=== PATIENT | male | born 1975 | race African-American/Black ===

== ENCOUNTER 2022-05-26 15:18 | Observation (INO) | payer SELFPAY ==
[2022-05-26 15:59] LABS: Hemoglobin 13.2 g/dL (14.0-18.0); Mean Corpuscular HGB CONC 32.5 g/dL (32.0-36.0); Mean Corpuscular Hemoglobin 29.1 pg (27.0-31.0); Mean Corpuscular Volume 89.6 fl (78.0-98.0); Mean Platelet Volume 9.3 fL (7.4-10.4); Platelet Count 145 10x3/uL (130-400); RBC Distribution Width 12.5 % (11.5-14.5); Red Blood Cell (RBC) Count 4.54 mill/uL (4.70-6.10); White Blood Cell (WBC) Count 4.6 10x3/uL (4.8-10.8)
[2022-05-26 16:17] LABS: ALT (SGPT) 32 U/L (8-55); AST (SGOT) 48 U/L (5-34); Albumin 4.1 g/dL (3.5-5.0); Alkaline Phosphatase 69 U/L (40-110); Anion Gap 10 mmol/L (10-20); BUN (Urea Nitrogen) 12 mg/dL (8.9-20.6); Bilirubin, Total 0.5 mg/dL (0.2-1.2); Calc. Creatinine Clearance 0 mL/min (70-130); Calcium 9.2 mg/dL (7.8-10.44); Carbon Dioxide 25 mmol/L (22-29); Chloride 103 mmol/L (98-107); Estimated GFR 101; Glucose 93 mg/dL (70-105); Potassium 3.3 mmol/L (3.5-5.1); Protein, Total 7.1 g/dL (6.0-8.3); Sodium 135 mmol/L (136-145)
[2022-05-26 16:21] LABS: Band 1 % (5-11); Eosinophils 3 % (0-10); Lymphocytes 53 % (21-51); MDiff Complete? YES; Monocytes 9 % (0-10); Neutrophil 32 % (42-75); Platelet Morphology Comment Appears Adequate; RBC Morphology Normal; Reactive Lymphocytes 1 % (0-10)
[2022-05-26] MEDS ORDERED: Potassium Chloride 20 MEQ TAB ONE (16:56)
[2022-05-26 17:37] LABS: Actual Bicarbonate (HCO3a) 27.1 mEq/L (22-28); Analyzer IN Cardio ER; Base Excess (BEa) 2.1 mEq/L (-2.0 to +3.0); CO2 Tension 43.8 mmHg (35.0-45.0); Calcium, Ionized (arterial) 1.19 mmol/L (1.12-1.30); Hemoglobin (Hb) 14.3 g/dL (14.0-18.0); O2 Tension (PaO2), arterial 75.3 mmHg (80.0-100.0); Potassium - ABG Lab 3.33 mmol/L (3.70-5.30); pH, Arterial 7.41 (7.35-7.45)
[2022-05-26 17:38] LABS: Puncture Site RRA
[2022-05-26 17:58] LABS: Acetaminophen Less than 10.0 mcg/mL (10.0-30.0); Alcohol Less than 10 mg/dL (Less than 10); Magnesium 2.2 mg/dL (1.6-2.6); Salicylate Less than 8.0 mg/dL (15.0-30.0)
[2022-05-26 18:24] LABS: Bacteria/HPF None Seen HPF (None Seen); Bilirubin Negative (Negative); Blood, Urine Negative (Negative); Clarity Clear (Clear); Glucose, Urine (Dipstick) Normal (Negative); Ketone, Urine Negative (Negative); Leukocyte 75 Leu/uL (Negative); Nitrite Negative (Negative); Protein, Urine (Dipstick) Negative (Neg-Trace); RBC/HPF None Seen HPF (0-3); Squamous Epithelial 0-3 HPF (0-3); Urobilinogen Normal mg/dL (Less than 2); pH, Urine 6.5 (5.0-9.0)
[2022-05-26 18:29] LABS: Amphetamine Detected (NotDetected); Barbiturates Screen Not Detected (NotDetected); Benzodiazepine Screen Not Detected (NotDetected); Cocaine Metabolite Screen Not Detected (NotDetected); Methadone Not Detected (NotDetected); Methamphetamine Detected (NotDetected); Opiate Screen Not Detected (NotDetected); Oxycodone Screen Not Detected (NotDetected); Phencyclidine (PCP) Detected (NotDetected); THC/Cannabinoid Screen Detected (NotDetected); Tricyclic Screen Not Detected (NotDetected)
[2022-05-26] MEDS ORDERED: Acetaminophen 325 MG TAB PO PRN (20:49)
[2022-05-26] MEDS ORDERED: Nicotine 14 MG PATCH TD SCH (21:00)
[2022-05-26 21:49] VITALS: BMI 34.8
[2022-05-27 04:04] VITALS: TEMP 98
[2022-05-27 09:40] LABS: ALT (SGPT) 30 U/L (8-55); AST (SGOT) 34 U/L (5-34); Alkaline Phosphatase 72 U/L (40-110); Anion Gap 11 mmol/L (10-20); BUN (Urea Nitrogen) 12 mg/dL (8.9-20.6); Bilirubin, Total 0.6 mg/dL (0.2-1.2); Calc. Creatinine Clearance 167 mL/min (70-130); Calcium 9.3 mg/dL (7.8-10.44); Carbon Dioxide 25 mmol/L (22-29); Chloride 107 mmol/L (98-107); Estimated GFR 106; Globulin 2.9 g/dL (2.4-3.5); Glucose 99 mg/dL (70-105); Potassium 3.8 mmol/L (3.5-5.1); Protein, Total 6.9 g/dL (6.0-8.3); Sodium 139 mmol/L (136-145)
[2022-05-27 12:22] VITALS: BP 142/93
== END 2022-05-27 13:00 | disposition home or self-care (01) ==
LOC: ERS 15:18 → ERHOLD 20:25 → T4-B 23:42
PROVIDERS: ADMIT Family Medicine; ATTEND Family Medicine
DX: F12.10 Cannabis abuse, uncomplicated (principal); F15.10 Other stimulant abuse, uncomplicated; F19.10 Other psychoactive substance abuse, uncomplicated; F17.210 Nicotine dependence, cigarettes, uncomplicated; G93.40 Encephalopathy, unspecified; E87.6 Hypokalemia; D64.9 Anemia, unspecified; R94.31 Abnormal electrocardiogram [ECG] [EKG]; R22.1 Localized swelling, mass and lump, neck; I10 Essential (primary) hypertension; E78.5 Hyperlipidemia, unspecified; E66.9 Obesity, unspecified; Z68.34 Body mass index [BMI] 34.0-34.9, adult
CPT/HCPCS: 36415; 36416; 36600; 70450; 80053; 80306; 80307; 81003; 81015; 82805; 83735; 84443; 84484; 85025; 93005; 94760; G0378

== ENCOUNTER 2023-01-05 13:35 | Emergency (ER) | payer SELFPAY ==
[2023-01-05] MEDS ORDERED: Acetaminophen 500 MG TAB ONE (14:33)
[2023-01-05] MEDS ORDERED: Ketorolac Tromethamine 30 MG/ML VIAL ONE (14:33)
== END 2023-01-05 16:10 | disposition home or self-care (01) ==
LOC: ERS 13:35
DX: S86.911A Strain of unspecified muscle(s) and tendon(s) at lower leg level, right leg, initial encounter (principal); I10 Essential (primary) hypertension; W01.198A Fall on same level from slipping, tripping and stumbling with subsequent striking against other object, initial encounter; Y92.009 Unspecified place in unspecified non-institutional (private) residence as the place of occurrence of the external cause; Z79.899 Other long term (current) drug therapy
CPT/HCPCS: 96372; J1885